=== PATIENT | male | born 1970 | race Caucasian/White ===

== ENCOUNTER 2017-07-04 11:11 | Outpatient (CLI) | payer BC ==
[2015-05-24 13:48] VITALS: BP 150/77
== END 2017-07-04 11:12 ==
LOC: LAB 11:11
PROVIDERS: ATTEND Nurse Practitioner
DX: N18.3 Chronic kidney disease, stage 3 (moderate) (principal); I10 Essential (primary) hypertension; Z68.31 Body mass index [BMI] 31.0-31.9, adult; I63.9 Cerebral infarction, unspecified; E78.5 Hyperlipidemia, unspecified; N20.0 Calculus of kidney; G47.33 Obstructive sleep apnea (adult) (pediatric)
CPT/HCPCS: 36415; 80069

== ENCOUNTER 2017-09-11 07:01 | Outpatient (CLI) | payer BC ==
[2015-05-24 13:48] VITALS: BP 150/77
[2017-09-11 07:24] LABS: BASOPHILS % 1.2 (0.0-1.5); EOSINOPHILS % 2.8 % (0.0-6.8); MEAN CORPUSCULAR HEMOGLOBIN 28.2 pg (28.0-34.0); MEAN CORPUSCULAR VOLUME 86.1 fl (80.0-100.0); MONOCYTES % 5.3 % (0.0-11.0); NEUTROPHILS # 3.3 # k/uL (1.4-7.7)
== END 2017-09-11 07:02 ==
LOC: LAB 07:01
PROVIDERS: ATTEND Urology
DX: E29.1 Testicular hypofunction (principal)
CPT/HCPCS: 36415; 84153; 84403; 85025; G0103

== ENCOUNTER 2018-01-14 08:41 | Day surgery (SDC) | payer BC ==
[2015-05-24 13:48] VITALS: BP 150/77
[~2018-01-14 08:41] MED LIST: LACTATED RINGERS 1,000 ML IV.SOLN IV ONE; LIDOCAINE HCL/PF 2% 100 MG/5 ML VIAL IJ ONE; PROPOFOL 200 MG/20 ML VIAL IV ONE
--- NOTE | 2018-01-17 15:25 | GI Report ---
REFERRING PHYSICIAN: Dr. Kelly Duque EXTRUSION PROCESS OPERATOR: Yash Plunkett MD PROCEDURE MEDICATION: Propofol as per anesthesia. INDICATIONS: This 47-year-old man has had strictures dilated in the past. We last saw him in May 2015. He does take a PPI twice a day. He does not have his bed elevated. He does weigh 124 kilograms. He has had return of solid food dysphagia and had an initial excellent response to dilatation but that was over 2 years ago. PROCEDURE PERFORMED: Endoscopy, biopsies, and esophageal dilatation. PROCEDURE: An Olympus video endoscope was advanced into esophagus without difficulty. In the distal esophagus, the patient has an ulceration and grade 2 to 3 esophagitis. We did take biopsies to rule out Ignacio's. There is a benign- appearing stricture and he does have a hiatal hernia. Fundus, body, and antrum of the stomach, otherwise, unremarkable. Duodenal bulb and first part of the duodenum are normal. After biopsies were taken of the distal esophagus for pathology, a guidewire was placed and the endoscope was removed and a 51 Savary-Mayra dilator passed without difficulty. A 54 Savary-Mayra dilator passed without difficulty. The endoscope was reintroduced. There was bleeding where the stricture was stretched. The patient tolerated the procedure well. FINDINGS: 1. Esophageal stricture dilated up to a 54 Bulgarian. 2. Significant esophagitis, biopsied. 3. Open GE junction and a hiatal hernia. RECOMMENDATIONS: 1. Needs to be on a PPI twice a day, half hour before breakfast and supper. 2. Needs to get the head of his bed elevated about 3 inches up on boards or blocks. 3. A 20 to 25-pound weight loss would markedly decrease intragastric pressure and improve reflux. 4. Take an antacid at bedtime. 5. Pending the biopsies, he may need this done again and re-dilated and biopsied in 2 to 3 years. cc: Dr. Kelly SCHWARTZ
== END 2018-01-14 08:42 ==
LOC: OPSURG 08:41
PROVIDERS: ATTEND Internal Medicine Gastroenterology
DX: K22.2 Esophageal obstruction (principal); K20.9 Esophagitis, unspecified; K44.9 Diaphragmatic hernia without obstruction or gangrene
CPT/HCPCS: 88304; J2001; J2704; J7120; 43239; 43248; S1016

== ENCOUNTER 2018-06-25 10:07 | Outpatient (CLI) | payer SELFPAY ==
[2015-05-24 13:48] VITALS: BP 150/77
[2018-06-25 10:53] LABS: eGFR (Non-African) > 60
== END 2018-06-25 10:09 ==
LOC: LAB 10:07
PROVIDERS: ATTEND Family Medicine
DX: I10 Essential (primary) hypertension (principal)
CPT/HCPCS: 36415; 80048; 80061

== ENCOUNTER 2018-11-04 08:40 | Outpatient (CLI) | payer OTHER ==
[2015-05-24 13:48] VITALS: BP 150/77
--- NOTE | 2018-11-04 09:22 | History and Physical Report ---
History of Present Illnes - History of Present Illness Reason for Visit: Evaluation for Pre-Op of Bilateral Inguinal Hernias History of Present Illness: Patient is a 48-year-old white male that presents for surgical examination and clearance for bilateral inguinal hernia repairs. He was seen at the [facility], by Dr. Velasquez, on 10/22/18. Patient states that he might have strained while lifting weights causing bilateral hernias L>R. He is very fit- works out 5 days a week. He states that he has been exercising but is being cautious- he really is wanting to get this fixed because he has constant pressure, feeling that he has to void, and has 4 young daughters that he wants to play with and hold. He has some discomfort when he sits. - Past Medical History Cardiac: HTN Pulmonary: Sleep Apnea (CPAP setting at 5 (uses occasionally)) Gastrointestinal: Other (esophageal stricture 2017) - Past Surgical History Past Surgical History: Appendectomy, Other (Strabsimus 2010, L4-L5 fusion 2001, Lt should arthroscopy, right ankle fx, rt elbow (tennis)), Other (Vasectomy) - Past Social History Smoke: No Alcohol: Rare Drugs: None Lives: With Family Domestic Violence: Negative - Health Maintenance Health Maintenance: Cholesterol Influenza Vaccine: No Pneumonia Vaccine: No Resuscitation Status: Full Code Review of Systems - Review of Systems Constitutional: negative: Fever, Chills Eyes: negative: conjunctivae inflammation, eyelid inflammation ENT: negative: Ear Pain Respiratory: negative: Shortness of Breath Cardiovascular: negative: Chest Pain Gastrointestinal: Abdominal Pain Genitourinary: negative: Dysuria Musculoskeletal: negative: Back Pain Skin: negative: Rash Neurological: negative: Weakness - Medications/Allergies Allergies/Adverse Reactions: Allergies Allergy/AdvReac Type Severity Reaction Status Date / Time Penicillins Allergy Severe Hives Unverified 11/06/12 15:39 Exam - Exam Vital Signs: BP 148/88 Left arm sitting, RR 18, HR 78, Pulse Ox 98% General: Alert, Oriented to Person, Oriented to Place, Oriented to Time, Cooperative, No acute distress, Other (Muscular stature) HEENT: PERRLA, Mouth Mucous membr. moist/Bressler, Nose Mucous membr. moist/Bressler Neck: Normal Range of Motion Carotids: No bruit Lungs: Clear to auscultation, Normal air movement, Speaks full Sentences Cardiovascular: Regular rate, Normal S1, Normal S2, No murmurs Peripheral Edema: None Peripheral Pulses: 2+ Abdomen: Normal bowel sounds, Soft Genitourinary: Right Inguinal Hernia, Left Inguinal Hernia (L>R) Male Genitourinary: No: Scrotal Edema, Penile Edema Integumentary: Normal, Bressler, Warm, Dry, Normal Turgor Extremities: No edema, Normal pulses, No tenderness/swelling Neurological: Normal gait, Normal speech, Strength Equal Bilat, Normal tone, Sensation intact Psych/Mental Status: Mental status NL, Mood NL, Appropriate Affect, Intact Judgment Assessment/Plan - Assessment/Plan (1) Inguinal hernia, bilateral Status: Acute Current Visit: Yes Plan: Will get clearances for potential repair of inguinal hernias VTE Assessment - RISK FACTOR SCORE VTE RISK FACTOR SCORES: AGE 40-60 YEARS (n/a)
[2018-11-04 10:08] LABS: eGFR (Non-African) > 60
[2018-11-04 10:38] LABS: MEAN CORPUSCULAR HEMOGLOBIN 26.4 pg (28.0-34.0); SEGMENTED NEUTROPHILS % 51 % (39-79)
[2018-11-04 10:39] LABS: BASOPHILS % 1 % (0-2); EOSINOPHILS % 1 % (0-7); MONOCYTES % 9 % (0-11)
== END 2018-11-04 08:42 ==
LOC: OUT 08:40
PROVIDERS: ATTEND Nurse Practitioner Family
DX: Z01.810 Encounter for preprocedural cardiovascular examination (principal); Z01.812 Encounter for preprocedural laboratory examination; K40.20 Bilateral inguinal hernia, without obstruction or gangrene, not specified as recurrent
CPT/HCPCS: 36415; 80053; 85025; 99214

== ENCOUNTER 2019-03-24 13:20 | Outpatient (CLI) | payer OTHER ==
[2015-05-24 13:48] VITALS: BP 150/77
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
== END 2019-03-24 13:23 ==
LOC: RAD 13:20
PROVIDERS: ATTEND Family Medicine
DX: M54.9 Dorsalgia, unspecified (principal); M54.2 Cervicalgia; M77.9 Enthesopathy, unspecified; V89.2XXA Person injured in unspecified motor-vehicle accident, traffic, initial encounter; Y99.8 Other external cause status
CPT/HCPCS: 72040; 72072

== ENCOUNTER 2019-04-04 10:35 | Outpatient (CLI) | payer OTHER ==
[2015-05-24 13:48] VITALS: BP 150/77
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
== END 2019-04-04 10:37 ==
LOC: RAD 10:35
PROVIDERS: ATTEND Family Medicine
DX: G44.311 Acute post-traumatic headache, intractable (principal); M54.2 Cervicalgia
CPT/HCPCS: 70450; 72125

== ENCOUNTER 2019-04-18 15:39 | Outpatient (CLI) | payer OTHER ==
[2015-05-24 13:48] VITALS: BP 150/77
[2019-05-01 07:13] LABS: BASOPHILS % 0.4 % (0.0-1.5); NEUTROPHILS # 4.8 # k/uL (1.4-7.7)
[2019-05-01 07:19] LABS: eGFR (Non-African) > 60
== END 2019-04-18 16:00 ==
LOC: LAB 15:39
PROVIDERS: ATTEND Nurse Practitioner
DX: I63.9 Cerebral infarction, unspecified (principal); I12.9 Hypertensive chronic kidney disease with stage 1 through stage 4 chronic kidney disease, or unspecified chronic kidney disease; N18.3 Chronic kidney disease, stage 3 (moderate); E78.5 Hyperlipidemia, unspecified; N20.0 Calculus of kidney; G47.33 Obstructive sleep apnea (adult) (pediatric)
CPT/HCPCS: 36415; 80069; 85025